=== PATIENT | male | born 1980 | race Caucasian/White ===

== ENCOUNTER 2021-12-20 06:52 | Emergency (ER) | payer OTHER, SELFPAY ==
[2021-12-20 07:06] VITALS: BP 136/92; PULSE 92; RESP 16; TEMP 36.3; O2SAT 99
--- NOTE | 2021-12-20 07:07 | ED.ABDPAIN ---
HPI - Abdominal Pain General Chief Complaint: Unspecified Stated Complaint: food stuck in throat Time Seen by Provider: 12/20/21 07:07 Source: patient Mode of arrival: ambulatory History of Present Illness HPI narrative: 41-year-old male with a history of foreign body impaction of the esophagus presents to the ER with -- food impaction in his upper esophagus after he ate roast 8 hours ago. He is regurgitating any liquid he drinks. Food sticks in his upper esophagus. He does not have any abdominal or epigastric pain. Onset (ago): hour(s) ( Started 8 hours ago) Related Data Home Medications Medication Instructions Recorded Confirmed No Home Medications 12/20/21 12/20/21 Allergies Allergy/AdvReac Type Severity Reaction Status Date / Time No Known Allergies Allergy Verified 12/20/21 07:06 Review of Systems Review of Systems: All systems reviewed & are unremarkable except as noted in HPI and below Constitutional: Constitutional: Reports as per HPI and Reports no additional constitutional complaints Eyes: Eyes: Reports as per HPI and Reports no additional eye complaints ENT: Reports system reviewed and no additional complaints, except as documented and Reports as per HPI Cardiovascular: Cardiovascular: Reports as per HPI and Reports no additional cardiovascular complaints Respiratory: Respiratory: Reports as per HPI and Reports no additional respiratory complaints Gastrointestinal: Gastrointestinal: Reports as per HPI and Reports no additional gastrointestinal complaints Genitourinary: Genitourinary: Reports no additional male genitourinary complaints and Reports as per HPI Musculoskeletal: Musculoskeletal: Reports no additional musculoskeletal complaints and Reports as per HPI Integumentary/Breasts: Skin/Breast: Reports system reviewed and no additional complaints, except as docu and Reports as per HPI Neurologic: Reports system reviewed and no additional complaints, except as documented and Reports as per HPI Psychiatric: Psychiatric: Reports no additional psychiatric complaints and Reports as per HPI Endocrine: Endocrine: Reports no additional endocrine complaints and Reports as per HPI Hematologic/Lymphatic: Hematologic/Lymphatic: Reports no additional hematologic/lymphatic complaints and Reports as per HPI Allergic/Immunologic: Allergic/Immunologic: Reports no additional allergic/immunologic complaints and Reports as per HPI PMFSH Past Medical History Medical History Impacted foreign body in esophagus Exam Const: General: healthy appearing and no acute distress Nutritional Appearance: well nourished Limitations: no limitations and altered mental status HENMT: Head: normal to inspection Ears: external ears normal General nose exam: Normal external nose present Face and sinus: normal facial exam Mouth: Yes Normal oral and palatal mucosa present Throat: posterior oropharynx normal Eyes: Conjunctivae: conjunctivae normal Pupils: Equal, round and reactive pupils present EOM: EOMs intact bilaterally Direct Ophthalmoscopy: no photophobia Neck: Neck: normal visual inspection Chest: Chest palpation & inspection: normal inspection of the chest Resp: Effort & Inspection: normal respiratory effort Auscultation: clear to auscultation bilaterally Cardio: Rate: regular rate Rhythm: regular rhythm Heart sounds: Murmur heart sound present GI: GI Palp: Yes Soft to palpation Other: no tenderness/ rigidity / rebound. : Male General Exam: Yes normal external exam Back/Spine/Pelvis: Back: no CVA tenderness Skin: General skin exam: normal color Rashes: no rashes Wounds: no wounds Neuro: General: patient oriented x3, moves all extremities, no meningeal signs, no focal motor deficits and CN's II-XI intact bilaterally Cranial nerves: Yes Nystagmus not present Speech: normal speech Gait exam (Neuro): Normal gait present Extrem: General
[2021-12-20] MEDS: GLUCAGON FOR INJ 1 MG VIAL IV PUSH (07:34)
[2021-12-20] MEDS: LACTATED RINGERS 1,000 ML 999 ML IV CONT (07:37)
[2021-12-20 08:11] VITALS: BP 140/88; PULSE 70; RESP 20; O2SAT 100
[2021-12-20 08:45] VITALS: BP 134/96; PULSE 84; RESP 20; O2SAT 98
[2021-12-20 08:51] VITALS: BP 134/96; PULSE 84; RESP 20; TEMP 37; O2SAT 98
--- NOTE | 2022-01-01 13:08 | ED.GENADULT ---
HPI - General Adult General Chief complaint: Unspecified Stated complaint: food stuck in throat Time Seen by Provider: 12/20/21 07:07 Source: patient Mode of arrival: ambulatory Related Data Allergies Allergy/AdvReac Type Severity Reaction Status Date / Time No Known Allergies Allergy Verified 12/20/21 10:50 [facility] Past Medical History Medical History Impacted foreign body in esophagus Overweight Smoker Surgical History Surgical History (Updated 12/20/21 @ 10:30 by Chapin Henderson MD) H/O esophagogastroduodenoscopy History of appendectomy Course Vital Signs Vital signs: Vital Signs Temperature 36.3 C L 12/20/21 07:06 Pulse Rate 92 12/20/21 07:06 Respiratory Rate 16 12/20/21 07:06 Blood Pressure 136/92 H 12/20/21 07:06 Pulse Oximetry 99 12/20/21 07:06 Oxygen Delivery Room Air 12/20/21 07:06 Temperature 37.0 C 12/20/21 08:51 Pulse Rate 84 12/20/21 08:51 Respiratory Rate 20 12/20/21 08:51 Blood Pressure 134/96 H 12/20/21 08:51 Pulse Oximetry 98 12/20/21 08:51 Oxygen Delivery Room Air 12/20/21 08:51 Medical Decision Making Vital Signs Vital Signs: Vital Signs Temperature 36.3 C L 12/20/21 07:06 Pulse Rate 92 12/20/21 07:06 Respiratory Rate 16 12/20/21 07:06 Blood Pressure 136/92 H 12/20/21 07:06 Pulse Oximetry 99 12/20/21 07:06 Oxygen Delivery Room Air 12/20/21 07:06 Temperature 37.0 C 12/20/21 08:51 Pulse Rate 84 12/20/21 08:51 Respiratory Rate 20 12/20/21 08:51 Blood Pressure 134/96 H 12/20/21 08:51 Pulse Oximetry 98 12/20/21 08:51 Oxygen Delivery Room Air 12/20/21 08:51 Discharge Plan Discharge Clinical Impression: Esophageal foreign body Patient Disposition: Still a Patient Condition: Stable Additional Instructions: transfer patient to GI specialist at [facility]. Prescriptions: No Action pantoprazole 40 mg tablet,delayed release (DR/EC) 40 mg PO QAM Qty: 30 5RF Follow-up/Referrals: UNKNOWN,DOCTOR [Primary Care Provider] - Time of Disposition: 08:29
== END 2021-12-20 08:53 | disposition home or self-care (01) ==
PROVIDERS: Emergency Provider Internal Medicine Critical Care Medicine
DX: T18.108A Unspecified foreign body in esophagus causing other injury, initial encounter (principal)
CPT/HCPCS: 96361; 96374; 99284; J1610; J7120

== ENCOUNTER 2021-12-20 10:04 | Day surgery (SDC) | payer OTHER, SELFPAY ==
[2021-12-20 10:15] VITALS: BP 132/91; PULSE 80; RESP 20; TEMP 36.2; O2SAT 100; BMI 28.8
--- NOTE | 2021-12-20 10:23 | P.CONGI_ITS ---
Assessment and Plan Assessment and plan (1) Esophageal foreign body: Code(s): T18.108A - Unspecified foreign body in esophagus causing other injury, initial encounter Status: Acute Assessment and Plan: EGD with possible biopsy or dilatation or cautery Removal of foreign body. I explained to the patient and his significant other that there is a significant risk of bleeding or of perforation of the esophagus in attempting to remove or dislodge the impacted bolus, that even surgery could be required. (2) Dysphagia: Code(s): R13.10 - Dysphagia, unspecified Status: Acute Assessment and Plan: I told that he will ultimately probably need to have an esophageal dilatation and may need better control of his acid reflux symptoms. GI Consult Note Consult date/time: 12/20/21 10:23 food impaction Reason for consult: dysphagia. Food stuck since yesterday HPI: Thaddeus Santos is a 41 year old male Who presented to an [facility] emergency room with a food impaction. He states that he was eating roast beef yesterday when he realized it got stuck. Since then he has been unable to get any liquids down. He has tried popsicles, he has tried water but everything he tried came back up. He states that this happened about 10 or 12 years ago and had to have a food impaction removed. He cannot recall if he has had any endoscopic treatment or dilatation in the interval. He does have chronic heartburn for which he takes [id number] medication. He is not on any prescription medications. He has not lost weight. He admits that occasionally he will notice that food such as meat or bread will go down very slowly will have to stop for a bit and let it pass Review of Systems Review of Systems: All systems reviewed & are unremarkable except as noted in HPI and below [facility] Past Medical History Medical History Impacted foreign body in esophagus Meds Home Medications and Allergies Home Medications Medication Instructions Recorded Confirmed Type No Home Medications 12/20/21 12/20/21 History Allergies Allergy/AdvReac Type Severity Reaction Status Date / Time No Known Allergies Allergy Verified 12/20/21 07:06 Exam Const: General: alert Orientation/consciousness: patient oriented x3 Resp: Auscultation: clear to auscultation bilaterally Cardio: Rhythm: regular rhythm GI: GI Palp: Yes Soft to palpation and No Tenderness to palpation present (GI) Neuro: General: patient oriented x3 [facility] Consult Billing Observation Consult [id number] New Pt Lvl 2 Strfd
--- NOTE | 2021-12-20 10:29 | P.PNAN_ITS ---
Anes - Initial Pre Proc Eval Procedure: Operation Date: 12/20/21 10:15 Proposed Procedures p Esophagogastroduodenoscopy - Manuel Trevino MD Date/Time: 12/20/21 10:29 Surgeon: Manuel Trevino MD Pre Op Diagnosis: Foodbolus Patient Data Age: 41 Gender: M Height: Weight: Allergies Allergy/AdvReac Type Severity Reaction Status Date / Time No Known Allergies Allergy Verified 12/20/21 07:06 Home Medications Medication Instructions Recorded Confirmed Type No Home Medications 12/20/21 12/20/21 History Patient hx anesthesia problems: none Family hx anesthesia problems: none Results Review: All pre-operative results and documents have been reviewed as part of the pre- operative evaluation. PMFSH Past Medical History Medical History Impacted foreign body in esophagus Overweight Smoker Surgical History Surgical History (Updated 12/20/21 @ 10:30 by Chapin Henderson MD) H/O esophagogastroduodenoscopy History of appendectomy Anes - Eval Final PreProcedure Day of Procedure 12/20/21 10:29 Patient weight: overweight Heart: regular rate and rhythm Lungs: clear to auscultation Airway: Mallampati scale class II Neurological: alert and oriented Last oral intake: >/= 8 hours ASA classification: II Emergent: yes Anesthetic plan: proceed Anesthesia type and monitoring: general GIVS and standard monitoring Results Review: All pre-operative results and documents have been reviewed as part of the pre- operative evaluation. Informed Consent: The patient's anesthetic plan and its attendant risks and benefits were discussed with the patient/family/POA. Questions were solicited and answers provided to the satisfaction of the patient/family/POA.
[2021-12-20] MEDS: LACTATED RINGERS 1,000 ML 150 ML IV CONT (10:30)
[2021-12-20 10:44] VITALS: BP 106/76; PULSE 90; RESP 16; O2SAT 100
[2021-12-20 10:54] VITALS: BP 106/73; PULSE 88; RESP 18; O2SAT 100
[2021-12-20 11:04] VITALS: BP 114/78; PULSE 79; RESP 17; O2SAT 99
== END 2021-12-20 11:25 | disposition home or self-care (01) ==
PROVIDERS: PCP Family Medicine; Visit Provider Internal Medicine Gastroenterology
PROC: 0DJ08ZZ Inspection of Upper Intestinal Tract, Via Natural or Artificial Opening Endoscopic (ICD-10-PCS; CPT 43235; principal; 2021-12-20 10:15)
DX: T18.128A Food in esophagus causing other injury, initial encounter (principal); K22.2 Esophageal obstruction
CPT/HCPCS: 43239; 43247; 88305; J2001; J2704; J7120

== ENCOUNTER 2025-02-23 01:00 | Day surgery (SDC) | payer OTHER, SELFPAY ==
[2025-02-23] VITALS (11 sets, daily range): BP systolic 127–151; BP diastolic 73–102; PULSE 68–97; RESP 16–22; TEMP 36.4–36.9; O2SAT 97–100
--- NOTE | ~2025-02-23 | XR_ITS ---
EXAMINATION: XR chest 1V portable DATE: 02/23/2025 01:19 INDICATION: Food bolus TECHNIQUE: frontal view of the chest was obtained. COMPARISON: None FINDINGS: The lungs are clear with no focal airspace opacities, pulmonary edema, pleural effusion or pneumothor ax. The cardiomediastinal silhouette is normal. Visualized bones and soft tissues are unremarkable. IMPRESSION: 1. No acute cardiopulmonary disease. Reviewed, dictated and finalized at location A.
--- NOTE | 2025-02-23 01:17 | ED.SKABFB ---
HPI - Skin/Abscess/Foreign Bdy General Chief complaint: Dental/Oral Stated complaint: food bolus Time Seen by Provider: 02/23/25 01:09 History of Present Illness HPI narrative: 44-year-old male with a previous history of esophageal stricture and esophageal fluid boluses 3 times over last few years. Most recently 2021. He has not followed up with GI for dilations or other interventions but does have to get EGDs during his food bolus impactions as he has failed medical management conservative therapies for them. He takes a daily and acid but no other medications. Otherwise been in his normal state of health. Denies any fever, chills. States that he was eating dinner and eating a sandwich that got stuck in his esophagus. Patient states this feels identical to last time which happened just a few years ago. He has not follow-up post procedure after he gets the food bolus impaction treated. Denies any other symptoms besides the retrosternal impaction sensation and nauseousness with any oral intake. No pain otherwise. No other symptoms. Onset of symptoms about 1 hour prior to arrival. Related Data Home Medications ?Medication ?Instructions ?Recorded ?Confirmed ?Last Taken ?Type omeprazole 20 mg capsule,delayed 20 mg PO DAILY 02/23/25 02/23/25 Unknown History release Allergies Allergy/AdvReac Type Severity Reaction Status Date / Time No Known Allergies Allergy Verified 02/23/25 07:17 Review of Systems Review of Systems: As reviewed above in HPI [facility] Past Medical History Medical History Smoker Overweight Impacted foreign body in esophagus Surgical History Surgical History History of appendectomy H/O esophagogastroduodenoscopy Exam Narrative: GENERAL: Uncomfortable appearing, not in any acute distress with his emesis basin at bedside HEAD: [Normocephalic, atraumatic.] EYES: [PERRLA and EOMI.] ENT: Nares clear, no rhinorrhea or epistaxis. Mucous membranes moist. NECK: Supple. CHEST: [Clear to auscultation. No respiratory distress.] HEART: [Regular rate and rhythm]. No murmur heard. [Normal peripheral pulses.] ABDOMEN: [Soft, nondistended], [nontender], [No rigidity or guarding] EXTREMITIES: Normal range of motion. [No edema.] SKIN: Warm, dry, no rash. NEURO: [No focal deficits]. Alert and oriented [x3.] PSYCH: [Normal mood and affect.] Course Vital Signs Vital signs: Vital Signs Temperature 36.9 C 02/23/25 01:04 Pulse Rate 82 02/23/25 01:04 Respiratory Rate 16 02/23/25 01:04 Blood Pressure 130/102 H 02/23/25 01:04 Pulse Oximetry 100 02/23/25 01:04 Oxygen Delivery Room Air 02/23/25 01:04 Temperature 36.4 C 02/23/25 07:24 Pulse Rate 97 02/23/25 07:24 Respiratory Rate 18 02/23/25 07:24 Blood Pressure 134/97 H 02/23/25 07:24 Pulse Oximetry 100 02/23/25 07:24 Oxygen Delivery Room Air 02/23/25 07:24 MDM - Skin/Abscess/Foreign Bdy MDM Narrative Medical decision making narrative: 44-year-old male with a previous history of esophageal stricture and esophageal fluid boluses 3 times over last few years. Most recently 2021. He has not followed up with GI for dilations or other interventions but does have to get EGDs during his food bolus impactions as he has failed medical management conservative therapies for them. He takes a daily and acid but no other medications. Otherwise been in his normal state of health. Denies any fever, chills. States that he was eating dinner and eating a sandwich that got stuck in his esophagus. Patient states this feels identical to last time which happened just a few years ago. He has not follow-up post procedure after he gets the food bolus impaction treated. Denies any other symptoms besides the retrosternal impaction sensation and nauseousness with any oral intake. No pain otherwise. No other symptoms. Onset of symptoms about 1 hour prior to arrival. Patient was overall stable and not any acute distress with normal vital signs without any tachycardia, fever, hypoxemia or blood pressure concerns. Uncomfortable appearance but benign examination otherwise. He is spitting up clear fluid and feeling nauseous. Attempted medical management of his food bolus impaction with 8 mg IV Zofran, 20 mg IV Pepcid and 1 mg of IM glucagon. Laboratory studies and chest x-ray obtained. Chest x-ray shows no focal cardiopulmonary process or obvious retained foreign body. Spoke to Dr. Jerome from Gastroenterology who agreed for EGD and states that will happen most likely 1st thing this morning and keep him in the emergency department and NPO until then. Patient will go to endoscopy approximately 7-8 this morning. Signed out to oncoming ER physician until endoscopy suite. Patient did feel interval improvement after medications. Did require additional dose of Reglan for nausea vomiting but remains hemodynamically stable. Eager for procedure this morning. Endoscopy suite has been activated and patient left the emergency department at this time in stable condition. Medical Records Attestation: I reviewed the patient's medical records. Lab Data Attestation: I reviewed the patient's lab results. 02/23/25 01:18 02/23/25 01:18 Labs: Lab Results 02/23/25 Range/Units 01:18 WBC 9.7 (4.5-10.0) K/mm3 RBC 5.16 (4.6-6.20) M/mm3 Hgb 15.4 (14.0-18.0) g/dL Hct 45.8 (42.0-52.0) % MCV 88.8 (80-100) fl MCH 29.8 (26-34) pg MCHC 33.6 (32-36) g/dl RDW 13.2 (11.5-14.5) % Plt Count 248 (150-375) k/mm3 MPV 10.1 (7.4-10.4) fl Immature Gran % (Auto) 0.2 (0-0.5) % Neut % (Auto) 60.7 (45.5-73.1) % Lymph % (Auto) 25.4 (18.3-44.2) % [place] % (Auto) 9.5 H (2.6-8.5) % Eos % (Auto) 3.4 (0-4.4) % Baso % (Auto) 0.8 (0.2-1.2) % Lymph # (Auto) 2.45 (0.9-3.2) K/mm3 [place] # (Auto) 0.9 H (0.1-0.6) K/mm3 Eos # (Auto) 0.3 (0-0.3) K/mm3 Baso # (Auto) 0.1 (0.0-0.1) K/mm3 Abs Immat Gran (auto) 0.02 (0.00-0.031) K/mm3 Absolute Neuts (auto) 5.9 (1.3-6.7) K/mm3 Absolute Nucleated RBC 0.000 (0.0-0.012) K/mm3 Nucleated RBC % 0.0 (0.0-0.2) % Sodium 140 (137-145) mmol/L Potassium 4.5 (3.4-5.0) mmol/L Chloride 104 (98-107) mmol/L Carbon Dioxide 29 (22-30) mmol/L Anion Gap 7 (4-12) mmol/L BUN 16 (9-20) mg/dL Creatinine 0.82 (0.7-1.3) mg/dL Estim Creat Clear Calc 92 ml/min Estimated GFR > 60 (59 - ) Glucose 108 (65-110) mg/dL Calcium 9.5 (8.4-10.2) mg/dL Imaging Data Attestation: I personally reviewed and interpreted this imaging study as follows: My impression: No acute abnormality Discharge Plan Discharge Clinical Impression: Food impaction of esophagus Patient Disposition: Still a Patient Condition: Stable
[2025-02-23] MEDS: ONDANSETRON INJ 4 MG/2 ML VIAL 8 MG IV PUSH (01:20)
[2025-02-23] MEDS: FAMOTIDINE 20 MG/2 ML VIAL IV PUSH (01:21)
[2025-02-23] MEDS: GLUCAGON FOR INJ 1 MG VIAL IM (01:21)
[2025-02-23 01:26] LABS: Hematocrit 45.8 % (42.0-52.0); Hemoglobin 15.4 g/dL (14.0-18.0); Immature Granulocyte Percent A 0.2 % (0-0.5); Lymphocytes Absolute Auto 2.45 K/mm3 (0.9-3.2); Mean Corpuscular HGB Conc 33.6 g/dl (32-36); Mean Corpuscular Hemoglobin 29.8 pg (26-34); Mean Corpuscular Volume 88.8 fl (80-100); Nucleated Red Blood Cells Absolute Auto 0.000 K/mm3 (0.0-0.012); Nucleated Red Blood Cells Perc 0.0 % (0.0-0.2); Platelet Count Result 248 k/mm3 (150-375); Red Blood Count 5.16 M/mm3 (4.6-6.20); White Blood Count 9.7 K/mm3 (4.5-10.0)
[2025-02-23 01:56] LABS: Anion Gap 7 mmol/L (4-12); Blood Urea Nitrogen 16 mg/dL (9-20); Calcium 9.5 mg/dL (8.4-10.2); Carbon Dioxide 29 mmol/L (22-30); Chloride 104 mmol/L (98-107); Estimated CRCL calculation 92 ml/min; Estimated Glomerular Filt Rate > 60; Glucose 108 mg/dL (65-110); Potassium 4.5 mmol/L (3.4-5.0); Sodium 140 mmol/L (137-145)
[2025-02-23] MEDS: METOCLOPRAMIDE HCL INJ 10 MG/2 ML VIAL 5 MG IV PUSH (03:22)
[2025-02-23] MEDS: LACTATED RINGERS 1,000 ML 150 ML IV CONT (07:26)
--- NOTE | 2025-02-23 07:35 | WPDANESEPPF ---
Anes - Initial Pre Proc Eval Procedure: Operation Date: 02/23/25 07:30 Proposed Procedures p Esophagogastroduodenoscopy - Sree Rivera MD Date/Time: 02/23/25 07:35 Surgeon: Sree Rivera MD Pre Op Diagnosis: food bolus Patient Data Age: 44 Gender: M Height: 1.7 m Weight: 81.9 kg Last Vital Signs Temp 97.6 F 02/23/25 07:24 Pulse 97 02/23/25 07:24 Resp 18 02/23/25 07:24 BP 134/97 H 02/23/25 07:24 Pulse Ox 100 02/23/25 07:24 O2 Del Method Room Air 02/23/25 07:24 Allergies Allergy/AdvReac Type Severity Reaction Status Date / Time No Known Allergies Allergy Verified 02/23/25 07:17 Home Medications ?Medication ?Instructions ?Recorded ?Confirmed ?Type omeprazole 20 mg capsule,delayed 20 mg PO DAILY 02/23/25 02/23/25 History release Laboratory Tests 02/23/25 01:18 WBC 9.7 K/mm3 (4.5-10.0) RBC 5.16 M/mm3 (4.6-6.20) Hgb 15.4 g/dL (14.0-18.0) Hct 45.8 % (42.0-52.0) MCV 88.8 fl (80-100) MCH 29.8 pg (26-34) MCHC 33.6 g/dl (32-36) RDW 13.2 % (11.5-14.5) Plt Count 248 k/mm3 (150-375) MPV 10.1 fl (7.4-10.4) Immature Gran % (Auto) 0.2 % (0-0.5) Neut % (Auto) 60.7 % (45.5-73.1) Lymph % (Auto) 25.4 % (18.3-44.2) [place] % (Auto) 9.5 H % (2.6-8.5) Eos % (Auto) 3.4 % (0-4.4) Baso % (Auto) 0.8 % (0.2-1.2) Lymph # (Auto) 2.45 K/mm3 (0.9-3.2) [place] # (Auto) 0.9 H K/mm3 (0.1-0.6) Eos # (Auto) 0.3 K/mm3 (0-0.3) Baso # (Auto) 0.1 K/mm3 (0.0-0.1) Abs Immat Gran (auto) 0.02 K/mm3 (0.00-0.031) Absolute Neuts (auto) 5.9 K/mm3 (1.3-6.7) Absolute Nucleated RBC 0.000 K/mm3 (0.0-0.012) Nucleated RBC % 0.0 % (0.0-0.2) Sodium 140 mmol/L (137-145) Potassium 4.5 mmol/L (3.4-5.0) Chloride 104 mmol/L (98-107) Carbon Dioxide 29 mmol/L (22-30) Anion Gap 7 mmol/L (4-12) BUN 16 mg/dL (9-20) Creatinine 0.82 mg/dL (0.7-1.3) Estim Creat Clear Calc 92 ml/min Estimated GFR > 60 (59 - ) Glucose 108 mg/dL (65-110) Calcium 9.5 mg/dL (8.4-10.2) Patient hx anesthesia problems: none Family hx anesthesia problems: none Results Review: All pre-operative results and documents have been reviewed as part of the pre-operative evaluation. [facility] Past Medical History Medical History Smoker Overweight Impacted foreign body in esophagus Surgical History Surgical History History of appendectomy H/O esophagogastroduodenoscopy Anes - Eval Final PreProcedure Day of Procedure 02/23/25 07:35 Patient weight: normal Lungs: normal air movement Airway: Mallampati scale class III Neurological: alert and oriented Last oral intake: >/= 8 hours ASA classification: II Emergent: no Anesthetic plan: proceed Anesthesia type and monitoring: general ETT and standard monitoring Results Review: All pre-operative results and documents have been reviewed as part of the pre-operative evaluation. Smoker 1/2 ppd, cannabis. Pt w food bolus from chicken sandwich approx 1900 last night. Informed Consent: The patient's anesthetic plan and its attendant risks and benefits were discussed with the patient/family/POA. Questions were solicited and answers provided to the satisfaction of the patient/family/POA.
--- NOTE | 2025-02-23 07:50 | S_PTH ---
PATIENT: Thaddeus Santos LOC: [facility]#:[id number] AGE/SX: 44/M ROOM: RE02/23/[address]: Sree Rivera MD : 1980 BED: DIS: 02/23/2025 SPEC #: [id number] RECD: 02/25/25 08:42 STATUS: MORELIA REQ #: [id number] JUANCHO: 02/23/25 07:[address]: Sree Rivera DEPT: [facility] Surgical RECD BY: Xochilt Watkins ENTERED: 02/25/25 08:42 SP TYPE: Surgical OTHR DR: Nael Nunes M.D. Tissues: A - Esophageal Biopsy Procedures: Hematoxylin and Eosin Stain Gross and Microscopic Level 4
--- NOTE | 2025-02-23 07:51 | PM.HPGS ---
History of Present Illness History of Present Illness Consent: Risks, benefits, and alternatives have been discussed and questions answered. Patient agrees to proceed with procedure. Chief complaint: food bolus Narrative: Thaddeus Santos is a 44 year old male here with food bolus after eating chicken for dinner, this is his third episode. Review of Systems Review of Systems: All systems reviewed & are unremarkable except as noted in HPI and below PMFSH Past Medical History Medical History Smoker Overweight Impacted foreign body in esophagus Surgical History Surgical History History of appendectomy H/O esophagogastroduodenoscopy Meds Home Medications and Allergies Home Medications ?Medication ?Instructions ?Recorded ?Confirmed ?Type omeprazole 20 mg capsule,delayed 20 mg PO DAILY 02/23/25 02/23/25 History release Allergies Allergy/AdvReac Type Severity Reaction Status Date / Time No Known Allergies Allergy Verified 02/23/25 07:17 Vital Signs Vital Signs - 24 hr 02/23/25 01:04 02/23/25 01:49 02/23/25 06:35 Temperature 98.5 F Pulse Rate 82 77 94 Respiratory Rate 16 18 18 Blood Pressure 130/102 H 151/91 H 139/78 Pulse Oximetry 100 99 97 Oxygen Delivery Room Air 02/23/25 07:00 02/23/25 07:24 Temperature 97.9 F 97.6 F Pulse Rate 80 97 Respiratory Rate 18 18 Blood Pressure 146/88 H 134/97 H Pulse Oximetry 98 100 Oxygen Delivery Room Air Exam Const: General: comfortable and no acute distress HENMT: Face/Nose/Sinus: Normal nares present Eyes: General: appearance normal, both eyes and all related structures Neck: Neck: no JVD Resp: Auscultation: clear to auscultation bilaterally Cardio: Rate: regular rate Rhythm: regular rhythm GI: Inspection: non-distended GI Palp: Yes Soft to palpation Skin: General skin exam: normal color Neuro: Speech: normal speech Extrem: General: normal to inspection Psych: Mental Status: mental status grossly normal Assessment and Plan Assessment and plan (1) Food impaction of esophagus: Code(s): T18.128A - Food in esophagus causing other injury, initial encounter; [id number].F3XA - Food entering into or through a natural orifice, initial encounter Status: Acute Assessment and Plan: urgent egd (2) Dysphagia: Code(s): R13.10 - Dysphagia, unspecified Status: Acute
== END 2025-02-23 08:57 | disposition home or self-care (01) ==
LOC: ANHED 01:19 → ANHSURGERY 06:25
PROVIDERS: Emergency Provider Student in an Organized Health Care Education/Training Program; PCP Family Medicine; Visit Provider Internal Medicine Gastroenterology
PROC: 0DJ08ZZ Inspection of Upper Intestinal Tract, Via Natural or Artificial Opening Endoscopic (ICD-10-PCS; CPT 43247; principal; 2025-02-23 07:30)
DX: T18.128A Food in esophagus causing other injury, initial encounter (principal); K22.2 Esophageal obstruction; K21.00 Gastro-esophageal reflux disease with esophagitis, without bleeding; W44.F3XA Food entering into or through a natural orifice, initial encounter; Z98.890 Other specified postprocedural states; F17.210 Nicotine dependence, cigarettes, uncomplicated; F12.90 Cannabis use, unspecified, uncomplicated
CPT/HCPCS: 43247; 43239; 36415; 71045; 80048; 85025; 88305; 96372; 96374; 96375; 99285; J0330; J1100; J1610; J2003; J2405; J2704; J2765; J7120